=== PATIENT | female | born 1980 | race Caucasian/White ===

== ENCOUNTER 2020-12-16 14:15 | Outpatient (RCR) | payer OTHER | END 2020-12-17 | LOC: M PT 14:15 | PROVIDERS: ATTEND Physician Assistant | DX: M25.511 Pain in right shoulder (principal) ==

== ENCOUNTER 2021-01-08 14:15 | Outpatient (RCR) | payer OTHER | END 2021-01-17 | LOC: M PT 14:15 | PROVIDERS: ATTEND Physician Assistant | DX: M25.511 Pain in right shoulder (principal) ==

== ENCOUNTER → 2021-03-15 | Outpatient (REF) | LOC: M EMP 08:38 | PROVIDERS: ATTEND Family Medicine | DX: Z20.822 Contact with and (suspected) exposure to COVID-19 (principal); Z11.52 Encounter for screening for COVID-19 ==

== ENCOUNTER 2023-06-16 07:00 | Outpatient (RCR) | payer OTHER | END 2023-06-18 | LOC: M PT 07:00 | PROVIDERS: ATTEND Orthopaedic Surgery | DX: M79.671 Pain in right foot (principal) ==

== ENCOUNTER → 2023-07-18 | Outpatient (RCR) | payer OTHER | LOC: M PT 06-19 07:26 | PROVIDERS: ATTEND Orthopaedic Surgery | DX: M79.673 Pain in unspecified foot (principal) ==

== ENCOUNTER 2023-08-15 07:00 | Outpatient (RCR) | payer OTHER | END 2023-08-18 | LOC: M PT 07:00 | PROVIDERS: ATTEND Orthopaedic Surgery | DX: M79.673 Pain in unspecified foot (principal) ==

== ENCOUNTER 2023-09-05 07:00 | Outpatient (RCR) | payer OTHER | END 2023-09-17 | LOC: M PT 07:00 | PROVIDERS: ATTEND Orthopaedic Surgery | DX: M79.671 Pain in right foot (principal) ==